=== PATIENT | male | born 1940 | race Caucasian/White ===

== ENCOUNTER → 2020-06-20 | Outpatient (CLI) | payer MEDICARE, OTHER ==
[~2020-06-20] MED LIST: ASPIRIN 32325 MG/TAB PO; CRESTOR40 MG PO; LOPID 600M600 MG/TAB PO; LORTAB 7.5/5001 TAB PO; NIACIN50 MG PO; NIACIN500 M3 PO
== END ==
LOC: COL.RAD 08:17
DX: C61 Malignant neoplasm of prostate (principal); N28.89 Other specified disorders of kidney and ureter
CPT/HCPCS: A9503; Q9967

== ENCOUNTER 2020-12-10 16:08 | Inpatient (IN) | payer MEDICARE, OTHER ==
[~2020-12-10] VITALS: Ht 175.3 cm; Wt 104.1 kg
[2021-01-12 09:31] LABS: HEMATOCRIT 48.2 % (42.0-52.0); HEMOGLOBIN 15.9 g/dl (13.5-18.0); MEAN CELL VOLUME 95 fl (80.0-100.0); MEAN CORPUSCULAR HEMOGLOBIN 31 pg (27.0-31.0); MEAN CORPUSCULAR HGB CONC 33 g/dl (33.0-37.0); MEAN PLATELET VOLUME 10.5 fl (7.4-10.4); PLATELET COUNT 199 K/mm3 (130-400); RED BLOOD COUNT 5.08 M/mm3 (4.20-5.60); REDCELL DISTRIBUTION WIDTH-CV 12.9 % (11.5-14.5)
[2021-01-12 09:48] LABS: ALBUMIN 3.5 gm/dL (3.5-5.0); BILIRUBIN,TOTAL 0.7 mg/dL (0.0-1.0); CALCIUM 9.6 mg/dL (8.4-10.2); CREATININE, serum 1.12 (0.66-1.25); POTASSIUM 4.2 mmol/L (3.4-5.0)
[2021-01-13] VITALS (12 sets, daily range): BP systolic 101–132; BP diastolic 58–85; PULSE 67–93; TEMP 98.1–98.8
--- NOTE | 2021-01-13 11:17 | NUR ---
TO RM 6 PER STEADY GAIT. ALERT ORIENTED X3, VERBALIZED UNDERSTANDING AND SIGNED CONSENT.
[2021-01-13] MEDS ORDERED: ASPIRIN E.C. 8181 MG PO (11:19)
[2021-01-13] MEDS ORDERED: COZAAR100 MG PO (11:19)
[2021-01-13] MEDS ORDERED: VITAMIN D250 MCG PO (11:20)
--- NOTE | 2021-01-13 16:15 | NUR ---
PATIENT ADMITED INTO ROOM 325 POST OP. A&O. VSS. DENIES PAIN OR NAUSEA AT THIS TIME. SON AT BEDSIDE. ABD LAP SITES X5 ARE CD&I AND FACTORY HELPER. MOON TO COMPRESSION WITH SMALL AMOUNT OF BLOODY DRAINAGE NOTED. SHEA TO DD WITH SMALL AMOUNTS OF CLEAR YELLOW URINE NOTED. IV FLUIDS INFUSING VIA PUMP INTO RIGHT HAND IV. HEAD TO TOE ASSESSMENT COMPLETE. ORIENTED TO ROOM. CALL LIGHT IN REACH.
--- NOTE | 2021-01-13 18:50 | NUR ---
REPORTED OFF TO BIBI MINER
[2021-01-14] VITALS (8 sets, daily range): BP systolic 98–110; BP diastolic 50–59; PULSE 59–73; TEMP 97.6–98.5
--- NOTE | 2021-01-14 01:54 | NUR ---
PATIENT ALERT AND ORIENTED X 4. POD#1 S/P ROBOTIC PARTIAL NEPHRECTOMY. ABD LAPS SITE CLEAN DRY AND INTACT. SHEA TO GRAVITY INTACT DRAINING CLEAR YELLOW URINE. LEFT SIDE MOON DRAIN INTACT TO SUCTION. VITAL SIGNS STABLE. PAIN MANAGE WITH TYLENOL AROUND THE CLOCK. WILL CONTINUE TO MONITOR.
[2021-01-14 06:02] LABS: HEMATOCRIT 37.6 % (42.0-52.0)
[2021-01-14 06:06] LABS: HEMOGLOBIN 12.6 g/dl (13.5-18.0)
[2021-01-14 06:15] LABS: CALCIUM 8.4 mg/dL (8.4-10.2); CREATININE, serum 1.23 (0.66-1.25)
--- NOTE | 2021-01-14 08:00 | NUR ---
Patient is alert and oriented x 4, vitals signs stable, patient reports pain 2-3 in a 10 numeric scale, requred medication before PT, gave PRN ultram 2 tablets with his morning meds. Patient is a partial left nephrectomy, abdominal lap sites x 5 and are clean, dry and intact and open to air. Bowel sounds present all quadrants, patient passing gas, no complains of nausea and vomiting. Head to toe assessment complete. Patient tolerating clear diet, diet advanced per orders. No other needs at this time. Call at reach.
--- NOTE | 2021-01-14 10:42 | NUR ---
Self Sealing Fuel Tank Repairer met with the patient and the patient's son, Colby to complete intake. The patient lives independently in [place]. The patient denies DME use. The patient's PCP is Dr. Rooney and [facility] The patient does not have advanced directives in the EMR but states they are complete and designate Colby. The patient plans to return home at discharge. The patient's son inquired about [facility] and other home services. KATHY provided the contact information for [facility]. 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 KATHY discussed home health and provided [email or web address]'s list of home health agencies. They will look them over and decide if they would like home health or not. The patient reports he has some friends that are supportive as well. KATHY collaborated with the patient's nurse to order PT for the patient. *Discharge disposition: Home (possibly with home health)*
--- NOTE | 2021-01-14 11:58 | NUR ---
First visit from the spindle sander. prayed with patient. No other needs right now.
--- NOTE | 2021-01-14 14:22 | NUR ---
PATIENT GOING FOR HIS SECOND WALK WITH THERAPY. TOLERATING ACTIVITY WELL. NO C/O PAIN
--- NOTE | 2021-01-14 17:30 | NUR ---
DC'D MOON DRAIN PER ORDERS. NOTED 30CC OF BLOODY DRAINAGE IN MOON BULB. PATIENT TOLERATED WELL. COVERED SITE WITH GAUZE & FOAM TAPE. PATIENT SITTING UP IN BEDSIDE CHAIR LOOKING AT MENU. NO OTHER NEEDS. PATIENT THANKED NURSING FOR OUR GOOD CARE. CALL LIGHT IN REACH.
--- NOTE | 2021-01-14 18:24 | NUR ---
Patient is sitting in chair reading a book. He is alert and oriented, VS stable, reports no pain at the moment, call light within reach.
--- NOTE | 2021-01-15 03:29 | NUR ---
PATIENT ALERT AND ORIENTED, POD #2 PROGRESS WELL. AMBULATE SEVERAL TIME IN HALLWAY. PAIN MANAGE WITH TRAMADOL. TOLERATES GENERAL DIET, VITAL SIGNS STABLE. PLAN TO D/C HOME TODAY WITH SERVICES.
[2021-01-15 03:55] VITALS: BP 107/55; PULSE 72; TEMP 98.6
[2021-01-15 08:00] VITALS: BP 114/87; PULSE 73; TEMP 97.8
--- NOTE | 2021-01-15 08:00 | NUR ---
Pt doing really well this morning. Dr Boudreaux has been in to see patient, discussed discharge. Pt reports he is ready to go home. Pain is tolerable and denies the need for pain medication at this time.
--- NOTE | 2021-01-15 10:29 | NUR ---
PT stated pt doing well and does not feel that patient needs home health. Pt also states that he does not want home health. He has been up walking in the halls independently, reports pain is tolerable and does not need additional pain medication. Discussed with Dr Boudreaux and Dr Boudreaux wanted us to speak to his son. Colby, pt's son just arrived to the floor. Colby's concerns are that the patient does not have his apartment adequately stocked with food or supplies to cook with. States that his mattress is too high for him to get in and out of bed. Also reports that his toilet is low to the ground and he is concerned that he will have difficulty getting up off the toilet. Informed him that he will maybe need to get a stool riser and mentioned meals on wheels for him. I stated that home health would not help with stock his apartment with supplies or food. Colby stated that he does have stairs as his apartment is in the basement and he has about 6 steps going down. Called Jaki with PT and she stated she would come by and assess his doing stairs.
--- NOTE | 2021-01-15 12:18 | NUR ---
PT worked with pt on the stairs and pt did well. Son is satisfied with pts activity and feels he is okay to go home. Dr Boudreaux was notified and orders received. Informed son that would be best if he could help his father get some groceries and kitchen supplies if that was his concern for him going home. Pt stated that he did get a stool riser for him. Reviewed discharge instructions with pt and his son. All questions answered. Pt is going to eat lunch before leaving. Informed them to notify nursing so that we can walk him out. INT removed from right hand
--- NOTE | 2021-01-15 12:37 | NUR ---
Initial visit; Patient thanked Screw Machine Operator for looking in on him and also offering a alevism known for its in-depth Bible Studies when patient inquired this of Screw Machine Operator.
--- NOTE | 2021-01-15 16:03 | NUR ---
The patient discharged home today, 01/15. The patient is independent and did not need services. The patient's son Colby was concerned about the patient being able to navigate his stairs at home. PT met with the patient and after the evaluation reports the patient was able to demonstrate safety and independence this day and walking 600 ft. The patient declined home health. *Discharge disposition: Home
== END 2021-01-15 12:50 | disposition home or self-care (01) | DRG 658 ==
LOC: INPTSU 01-13 10:25 → SURG 01-13 11:15
PROVIDERS: ADMIT Urology
PROC: 8E0W4CZ Robotic Assisted Procedure of Trunk Region, Percutaneous Endoscopic Approach (ICD-10-PCS; 2021-01-13)
PROC: 0TB14ZZ Excision of Left Kidney, Percutaneous Endoscopic Approach (ICD-10-PCS; principal; 2021-01-13 12:30)
DX: C64.2 Malignant neoplasm of left kidney, except renal pelvis (principal); N18.30 Chronic kidney disease, stage 3 unspecified; E11.22 Type 2 diabetes mellitus with diabetic chronic kidney disease; E78.00 Pure hypercholesterolemia, unspecified; E78.5 Hyperlipidemia, unspecified; I12.9 Hypertensive chronic kidney disease with stage 1 through stage 4 chronic kidney disease, or unspecified chronic kidney disease; E66.01 Morbid (severe) obesity due to excess calories; Z85.46 Personal history of malignant neoplasm of prostate; Z88.2 Allergy status to sulfonamides; Z68.33 Body mass index [BMI] 33.0-33.9, adult
CPT/HCPCS: A4314; J0690; J2250; J2704; J3010; J7120